=== PATIENT | female | born 1980 | race Caucasian/White ===

== ENCOUNTER → 2021-05-24 | Outpatient (CLI) | payer BC ==
--- NOTE | 2021-05-24 14:39 | RAD ---
INDICATION: 41 years of age asymptomatic female patient presents for screening mammography. No person al or family history of breast cancer. TECHNIQUE: Full field craniocaudal and mediolateral oblique images of both breasts were obtained usi ng digital technique with tomosynthesis and also analyzed with computer-aided detection software. COMPARISON: Baseline mammogram . BREAST COMPOSITION: Category C: The breast tissue is heterogeneously dense, which could obscure detec tion of small masses. FINDINGS: Right breast: Asymmetry in the superior breast, 4 cm deep to the nipple appreciated on the MLO projec tion. This is not definitely appreciated on the CC projection. No suspicious calcifications or neela ectural distortion. Left breast: No suspicious masses, microcalcifications or architectural distortion is present to sugg est malignancy. The visualized axillae are unremarkable. IMPRESSION: Indeterminate asymmetry in the superior right breast appreciated on the MLO projection, 4 cm deep to the nipple. This may represent parenchymal summation. Additional evaluation with diagnost ic right breast mammogram with spot compression. Possibly followed with targeted right breast ultraso und. RECOMMENDATION: Annual screening mammography is recommended, unless clinically indicated sooner based on symptoms or change in physical exam. BIRADS 0: INCOMPLETE - NEED ADDITIONAL IMAGING EVALUATION AND/OR PRIOR MAMMOGRAMS FOR COMPARISON. This study was interpreted with the benefit of Computerized Aided Detection (CAD). ?Your patient's mammogram demonstrates that she has dense breast tissue (breast density category C or D), which could hide abnormalities, and if she has other risk factors for breast cancer that have be en identified, she might benefit from supplemental screening tests that may be suggested by you as he r ordering physician. Dense breast tissue, in and of itself, is a relatively common condition. Theref ore, this information is not provided to cause undue concern, but rather to raise your awareness and to promote discussion with your patient regarding the presence of other risk factors, in addition to dense breast tissue. Your patient's mammography results will be sent to her. Patient information is entered into the reminder system with a target due date for the next screening mammogram. Mammography is the most sensitive method for finding small breast cancers, but it does not detect the m all and is not a substitute for careful clinical examination. A negative mammogram does not negate a clinically suspicious finding and should not result in delay in biopsying a clinically suspicious a bnormality. "Our facility is accredited by the [employer] Mammography [employer]." Electronically signed by: Elie Menon DO (05/24/2021 2:36 PM) [id number]
== END ==
LOC: MAMMO 09:25
PROVIDERS: ATTEND Obstetrics & Gynecology
DX: Z12.31 Encounter for screening mammogram for malignant neoplasm of breast (principal)
CPT/HCPCS: 77063; 77067

== ENCOUNTER → 2021-06-12 | Outpatient (CLI) | payer BC, OTHER ==
--- NOTE | 2021-06-12 11:15 | RAD ---
DATE: 06/12/2021 EXAM: US BREAST LTD RT, MG DIAGNOSTICUNILAT MAMMO HISTORY: 41-year-old woman called back from baseline screening mammogram for asymmetry in the upper r ight breast 4 cm from the nipple on MLO view. COMPARISON: Screening mammogram 05/24/2021 Breast Density: HETERO The breast parenchyma is heterogenously dense, which could reduce sensitivity of mammography. Breast parenchyma level C. FINDINGS: There is a 6 mm nodular asymmetry in the upper right breast at 12:00, 4.3 cm from the nippl e. There is an additional 1 cm nodular asymmetry in the retroareolar right breast. These persist on s pot compression. Ultrasound of the right breast was performed in the areas of concern. At 12:30, 3 cm from the nipple, there is a 5 x 3 x 2 mm ovoid hypoechoic mass with circumscribed margins and no posterior acoustic s hadowing. No internal vascularity. There is one prominent duct measuring 2 mm in diameter in the retr oareolar region, which does not definitively correlate with the mammogram finding. No debris or mass within the duct. No other cyst or mass seen. Normal lymph nodes in the right axilla. IMPRESSION: Probably benign 5 mm hypoechoic right breast mass at 12:30, 3 cm from the nipple. This ma y be a complicated cyst containing debris or a fibroadenoma. No definite sonographic correlation with the retroareolar asymmetry seen on mammogram. Recommend 6 month follow-up right breast mammogram and ultrasound to ensure stability. BI-RADS CATEGORY: 3 PROBABLY BENIGN FINDING(S)-SHORT INTERVAL FOLLOW-UP SUGGESTED RECOMMENDED FOLLOW-UP: 6M 6 MONTH FOLLOW-UP PQRS compliance statement: Patient information was entered into a reminder system with a target due d ate for the next mammogram. Mammography is a sensitive method for finding small breast cancers, but it does not detect them all a nd is not a substitute for careful clinical examination. A negative mammogram does not negate a clin ically suspicious finding and should not result in delay in biopsying a clinically suspicious abnorma lity. "Our facility is accredited by the [employer] Mammography Program." Electronically signed by: Lissette Romero MD (06/12/2021 11:13 AM) [id number]
== END ==
LOC: MAMMO 08:59
PROVIDERS: ATTEND Obstetrics & Gynecology
DX: N63.41 Unspecified lump in right breast, subareolar (principal); R92.8 Other abnormal and inconclusive findings on diagnostic imaging of breast
CPT/HCPCS: 76642; 77065